=== PATIENT | female | born 1965 | race Two or more races ===

== ENCOUNTER 2024-07-19 18:01 | Emergency (ER) | payer OTHER ==
[2024-07-19] MEDS: Propofol 200 MG/20 ML SDV IVPUSH ONE ×2 (22:42)
== END 2024-07-20 01:19 | disposition home or self-care (01) ==
LOC: MW.ED 18:01
DX: S52.501A Unspecified fracture of the lower end of right radius, initial encounter for closed fracture (principal); Z90.49 Acquired absence of other specified parts of digestive tract; Z88.0 Allergy status to penicillin; W00.0XXA Fall on same level due to ice and snow, initial encounter
CPT/HCPCS: 25605; 73100; 73110; 99152; 99283; J2704